=== PATIENT | female | born 1965 | race Caucasian/White ===

== ENCOUNTER 2019-07-15 08:17 | Day surgery (SDC) | payer OTHER ==
[2019-07-15] MEDS ORDERED: FENTAnyl 50 MCG/ML VIAL (10:08)
[2019-07-15] MEDS ORDERED: MIDAZOLAM 1 MG/ML 2 ML INJ ×2 (10:08)
== END 2019-07-15 12:56 | disposition home or self-care (01) ==
LOC: GIL 08:17
DX: Z12.11 Encounter for screening for malignant neoplasm of colon (principal); K57.30 Diverticulosis of large intestine without perforation or abscess without bleeding
CPT/HCPCS: 45378